=== PATIENT | female | born 1965 | race Caucasian/White ===

== ENCOUNTER 2020-11-06 14:12 | Emergency (ER) | payer OTHER ==
[~2020-11-06] VITALS: Ht 177.8 cm; Wt 99.8 kg
[~2020-11-06 14:12] MED LIST: DOXEPIN 25 MG C25 MG PO; EYE DROPS15 M1 OP; MEDROLDOSEPACK PO; ZANTAC 150MG T150 MG PO; ZYRTEC10 M2 PO
[2020-11-06 14:51] VITALS: BP 121/73
== END 2020-11-06 15:42 | disposition home or self-care (01) ==
LOC: ER 14:12
DX: S92.354A Nondisplaced fracture of fifth metatarsal bone, right foot, initial encounter for closed fracture (principal); X58.XXXA Exposure to other specified factors, initial encounter; Y93.01 Activity, walking, marching and hiking; Y92.89 Other specified places as the place of occurrence of the external cause; Y99.8 Other external cause status

== ENCOUNTER 2021-03-26 19:55 | Emergency (ER) | payer OTHER ==
[~2021-03-26] VITALS: Ht 175.3 cm; Wt 99.8 kg
[2021-03-27] MEDS ORDERED: AZITHROMYCIN 2250 MG PO (00:21)
[2021-03-27 00:48] VITALS: BP 140/80
== END 2021-03-27 00:53 | disposition home or self-care (01) ==
LOC: ER 19:55
PROVIDERS: Emergency Medicine
DX: U07.1 COVID-19 (principal); R05.9 Cough, unspecified; Z79.899 Other long term (current) drug therapy